=== PATIENT | female | born 1955 | race Caucasian/White ===

== ENCOUNTER 2023-05-07 09:30 | Outpatient (CLI) | payer MEDICARE, BC | END 2023-05-07 09:31 | disposition home or self-care (01) | LOC: MRI 09:30 | PROVIDERS: ATTEND Orthopaedic Surgery | DX: M92.522 Juvenile osteochondrosis of tibia tubercle, left leg (principal); M76.892 Other specified enthesopathies of left lower limb, excluding foot; R60.0 Localized edema; S76.112A Strain of left quadriceps muscle, fascia and tendon, initial encounter; M23.301 Other meniscus derangements, unspecified lateral meniscus, left knee ==

== ENCOUNTER 2024-04-24 12:37 | Outpatient (CLI) | payer MEDICARE, BC | END 2024-04-24 12:38 | disposition home or self-care (01) | LOC: SCSRAD 12:37 | PROVIDERS: ATTEND Family Medicine | DX: M25.561 Pain in right knee (principal); M25.461 Effusion, right knee ==